=== PATIENT | female | born 1985 ===

== ENCOUNTER 2020-11-13 06:11 | Day surgery (SDC) | payer OTHER ==
[2020-11-13] MEDS ORDERED: NEXIUM 24HR20 MG PO (08:46)
[2020-11-13] MEDS ORDERED: CARAFATE1 GM PO (08:47)
== END 2020-11-13 10:10 | disposition home or self-care (01) ==
LOC: AMB-ENDOS 06:11
PROVIDERS: ATTEND Surgery
DX: D13.1 Benign neoplasm of stomach (principal); Z20.822 Contact with and (suspected) exposure to COVID-19